=== PATIENT | female | born 1940 | race Caucasian/White ===

== ENCOUNTER 2016-09-11 08:56 | Outpatient (CLI) | payer MEDICARE, OTHER ==
[2015-10-08 10:03] VITALS: BP 126/76
== END 2016-09-11 08:57 ==
LOC: LAB 08:56
PROVIDERS: ATTEND Clinical Nurse Specialist Medical-Surgical
DX: M81.0 Age-related osteoporosis without current pathological fracture (principal); Z82.62 Family history of osteoporosis; Z87.310 Personal history of (healed) osteoporosis fracture; E55.9 Vitamin D deficiency, unspecified
CPT/HCPCS: 36415; 82306; 82310

== ENCOUNTER 2017-09-08 08:48 | Outpatient (CLI) | payer MEDICARE, OTHER ==
[2015-10-08 10:03] VITALS: BP 126/76
--- NOTE | 2017-09-08 11:20 | Diagnostic Imaging Report ---
ROGELIO CHOI (FIOR) - OP [facility] [address] [address] Report Submission Date: Sep 08, 2017 9:14:20 AM CDT Patient Study Name: JOYCE FERRERA I Date: Sep 08, 2017 8:53:10 AM CDT Modality Type: DX Gender: F Description: LOWER EXTREMITY : 40 Institution: [facility] Physician: ROGELIO CHOI (FIOR) - OP Examination: Plain film right knee History: RT KNEE PAIN X SEVERAL MONTHS (Hx) Findings: 3 views of the right knee demonstrates normal cortical margins. No fracture. No dislocation. No joint effusion. No soft tissue irregularity. Impression: No acute osseous abnormality Electronically signed on Sep 08, 2017 9:14:20 AM CDT by: Colten HERNANDEZ
== END 2017-09-08 08:50 ==
LOC: RAD 08:48
PROVIDERS: ATTEND Nurse Practitioner Family
DX: M25.561 Pain in right knee (principal)
CPT/HCPCS: 73562

== ENCOUNTER 2017-10-09 14:56 | Outpatient (CLI) | payer MEDICARE, OTHER ==
[2015-10-08 10:03] VITALS: BP 126/76
== END 2017-10-09 15:00 ==
LOC: LAB 14:56
PROVIDERS: ATTEND Clinical Nurse Specialist Medical-Surgical
DX: M81.0 Age-related osteoporosis without current pathological fracture (principal); Z82.62 Family history of osteoporosis; Z87.310 Personal history of (healed) osteoporosis fracture; E55.9 Vitamin D deficiency, unspecified
CPT/HCPCS: 36415; 82306; 82310

== ENCOUNTER 2017-10-30 19:13 | Emergency (ER) | payer MEDICARE, OTHER ==
[2017-10-30] MEDS ORDERED: METOCLOPRAMIDE HCL 5 MG TABLET PO ONE (20:24)
[2017-10-30] MEDS ORDERED: 0.9 % SODIUM CHLORIDE 1,000 ML IV SCH (20:30)
[2017-10-30] MEDS ORDERED: 0.9 % SODIUM CHLORIDE 1,000 ML IV ONE (20:36)
[2017-10-30] MEDS ORDERED: HYOSCYAMINE SULFATE 0.125 MG TAB.SUBL SL SCH (21:00)
--- NOTE | 2017-10-30 21:47 | Diagnostic Imaging Report ---
[facility] [address] [facility].[address] [address] Report Submission Date: Oct 30, 2017 9:21:20 PM CDT Patient Study Name: JOYCE FERRERA I Date: Oct 30, 2017 8:44:43 PM CDT Modality Type: DX Gender: F Description: CHEST,ABDOMEN : 40 Institution: [facility] Physician: AMMY RAPHAEL Chest and abdomen series History: Abdomen pain Findings: A single view of the chest reveals superior mediastinal widening. The lungs are clear. There is no pleural effusion. Upright and supine abdomen films reveal a normal bowel gas pattern, cholecystectomy clips, and numerous bilateral pelvic calcifications. There is no evidence of free air or constipation. Impression: 1. Superior mediastinal widening. Recommend standard contrast enhanced chest CT followup. 2. Normal bowel gas pattern. Electronically signed on Oct 30, 2017 9:21:20 PM CDT by: Jadon HERNANDEZ
[2017-10-30] MEDS ORDERED: BISACODYL 10 MG SUPP.RECT RC ONE (21:51)
[2017-10-30] MEDS ORDERED: MAGNESIUM HYDROXIDE 400 MG/5 ML 30ML UDC PO ONE (21:51)
[2017-10-30] MEDS ORDERED: LACTULOSE 10 GM/15 ML UDC PO SCH (22:00)
[2017-10-30] MEDS ORDERED: LACTULOSE 10 GM/15 ML UDC PO ONE (22:25)
--- NOTE | 2017-10-30 22:53 | ED Physician Documentation ---
Abdominal Pain - HISTORIAN Historian: patient - HPI Stated Complaint: abdominal cramps, nausea, vomitting, chills Chief Complaint: Abdominal Pain Additonal Information: Since yesterday, hard stools despite laxatives which made abd. pain worse. Onset: days ago (1) Duration: waxing, waning Timing: still present Context: denies: out of country travel, bad food, recent trauma Severity: moderate Quality: aching, fullness Front/Back of Body, Lg (Color): 1 - pain Associated Symptoms: nausea, vomiting Exacerbated by: food Relieved by: nothing Further Comments: no - ROS CONST: no problems GI/: constipation CVS/RESP: none EYES/ENT: none MS/SKIN/LYMPH: none NEURO/PSYCH: none - SOCIAL HX Smoking History: non-smoker Alcohol Use: none Drug Use: none - FAMILY HX Family History: no significant history - PAST HX Past History: other (orthopedic issues) Ischemic Bowel Risk Factors: none Other History: none Immunizations: referred to PCP Home Medications: Ambulatory Orders Medication Instructions Recorded Erythromycin Lactobionate 1 each D 08/03/14 [Erythrocin] Montelukast Sodium [Singulair] 10 mg D 08/03/14 Omeprazole [Omeprazole] 20 mg D 08/03/14 Ondansetron HCl Rapdis [Zofran ODT] 4 mg PO Q8 PRN #12 tab 08/03/14 Allergies/Adverse Reactions: Allergies Allergy/AdvReac Type Severity Reaction Status Date / Time alendronate sodium Allergy Verified 10/30/17 20:34 [From Fosamax] ibandronate sodium Allergy Verified 10/30/17 20:34 [From Boniva] menthol Allergy Verified 10/30/17 20:34 nitrofurantoin Allergy Verified 10/30/17 20:34 macrocrystalline [From Macrodantin] ofloxacin [From Floxin] Allergy Verified 10/30/17 20:34 Penicillins Allergy Verified 10/30/17 20:34 Sulfa (Sulfonamide Allergy Verified 10/30/17 20:34 Antibiotics) Tetracyclines Allergy Verified 10/30/17 20:34 ACTENEL Allergy Uncoded 10/30/17 20:34 - VITAL SIGNS Vital Signs: Vital Signs Temp Pulse Resp BP Pulse Ox 98.5 F 112 H 18 124/73 98 10/30/17 19:15 10/30/17 19:15 10/30/17 19:15 10/30/17 19:15 10/30/17 19:15 - REVIEWED ASSESSMENTS Nursing Assessment Reviewed: Yes Vitals Reviewed: Yes Progress - Results/Orders Results/Orders: aas ordered - Progress Progress: Pt. given 0.25 mg hyoscyamine p.o. and reglan 10 mg p.o., 1 liter NS in ER. Cramping and fullness resolved. Pt. given 1 dulcolax suppositiory and 30 cc mom and 30 cc lactulose prior to discharge Critical Care Note - Critical Care Note Total Time (mins): 0 ED Results Lab/Radiology - Lab Results Lab Results: none ordered - Radiology Radiology Impressions: aas shows retained stool descending colon and gas in middle abdomen/small bowel - Orders Orders: ED Orders Category Date Time Status Place IV Lock 1T Care 10/30/17 20:31 Active AAS [ABD SERIES PA CHEST] [RAD] Stat Exams 10/30/17 Completed 0.9 % Sodium Chloride [Normal Saline] 1,000 ml Med 10/30/17 20:30 Ordered IV .Q1H Bisacodyl [Dulcolax] Med 10/30/17 21:51 Discontinued 10 mg RC NOW ONE Hyoscyamine Sulfate [Oscimin Sl] Med 10/30/17 21:00 Ordered 0.25 mg SL Q6H Lactulose [Enulose] Med 10/30/17 22:00 Ordered 10 gm PO 1100 Magnesium Hydroxide [Milk of Magnesia] Med 10/30/17 21:51 Discontinued 2,400 mg PO NOW ONE Metoclopramide HCl [Reglan] Med 10/30/17 20:24 Discontinued 10 mg PO NOW ONE Abdominal Pain Physical Exam - Physical Exam General Appearance: alert, mild distress EENT: eye inspection normal, ENT inspection normal, pharynx normal, no signs of dehydration, GIANCARLO, no nystagmus, TM's nml NECK: normal inspection, thyroid normal, supple RESPIRATORY: no resp distress, chest non-tender, breath sounds normal CVS: reg rate & rhythm, heart sounds normal, equal pulses ABDOMEN: soft, tenderness (left sided), decreased BS, other (tympany upper abdomen, fullness lower abdomen) BACK: normal inspection, no CVA tenderness SKIN: warm/dry, normal color EXTREMITIES: non-tender, normal range of motion, no evidence of injury, no edema NEURO: oriented X3, CN's nml as tested, motor nml, sensation nml, mood/affect nml, cognition normal Vital Signs: Vital Signs Temp Pulse Resp BP Pulse Ox 98.5 F 112 H 18 124/73 98 10/30/17 19:15 10/30/17 19:15 10/30/17 19:15 10/30/17 19:15 10/30/17 19:15 Discharge Clincal Impression: Constipation Qualifiers: Constipation type: slow transit constipation Qualified Code(s): K59.01 - Slow transit constipation Referrals: Jerel Shaver DO [Primary Care Provider] - 2 Days Comments: Discharged with instructions to increase fluids and consider daily colace Condition: Stable Disposition: HOME, SELF-CARE Decision to Admit: NO Decision Time: 22:30
[2017-10-31 00:30] VITALS: BP 139/69
== END 2017-10-30 22:30 | disposition home or self-care (01) ==
LOC: ED 19:13
DX: K59.01 Slow transit constipation (principal)
CPT/HCPCS: 74022; A9270; 96365; 96366; 99284; S1016

== ENCOUNTER 2017-11-17 11:26 | Outpatient (CLI) | payer MEDICARE, OTHER ==
[2017-10-31 00:30] VITALS: BP 139/69
== END 2017-11-17 11:28 ==
LOC: LAB 11:26
PROVIDERS: ATTEND Orthopaedic Surgery Sports Medicine
DX: M25.561 Pain in right knee (principal)
CPT/HCPCS: 36415; 83036

== ENCOUNTER 2018-02-22 09:55 | Day surgery (SDC) | payer MEDICARE, OTHER ==
[2017-10-31 00:30] VITALS: BP 139/69
[~2018-02-22 09:55] MED LIST: LACTATED RINGERS 1,000 ML IV.SOLN IV ONE; LIDOCAINE HCL/PF 2% 100 MG/5 ML VIAL IJ ONE; PROPOFOL 200 MG/20 ML VIAL IV ONE; SALINE FLUSH 10 ML DISP.SYRIN IVF ONE
--- NOTE | 2018-02-22 13:25 | GI Report ---
REFERRING PHYSICIAN: JESSICA Hernandez RETAIL ANALYTICS MANAGER: Jb Villalobos MD PROCEDURE MEDICATION: Propofol as per anesthesia. INDICATIONS: This is a 77-year-old woman who has had adenomatous polyps when looked at a number of years ago and had to be piecemeal removed. She recently has had some cramps and change in stools and discomfort on the right side of the abdomen. She did have a cholecystectomy. Because of the previous polyps piecemealed and change in bowel habits with cramps and irregular stools, she is referred for a colonoscopy surveillance follow up. On examination, she has slight tenderness in the right lower quadrant. There is a smooth area to palpate. I do not know if it is a cyst or it could be a node or whether a loop of colon that one can palpate on deep palpation in the right lower quadrant. PROCEDURE PERFORMED: Colonoscopy. PROCEDURE: An [employer] video colonoscope was advanced to the rectum. In the sigmoid, she has mild diverticular disease. 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 It took some maneuvering and nurse compression to finally reach the cecum. Particularly redundant was the right colon. We were able to get in the terminal ileum and that looked normal. The appendiceal orifice was normal. On slow withdrawal, the cecum and ascending colon showed redundancy but no obvious intraluminal lesions noted. We went back and forth through there several times. She had a previous polyp in the cecum and it was adenomatous and I see no residual. She had a polyp near the hepatic flexure, again, I saw no residual in that area. On slow withdrawal, the transverse colon, likewise, was normal. The descending colon and sigmoid with mild diverticular disease and redundancy. No obvious intraluminal lesions were noted. Retroflexion of the rectum was normal. Patient tolerated the procedure well. FINDINGS: 1. Atonic redundant colon. 2. Mild diverticular disease of the sigmoid colon. 3. I see no residual polyp at present. RECOMMENDATIONS: 1. Would add something such as Benefiber, FiberCon, or Metamucil at bedtime daily post cholecystectomy. 2. Because of that area of tenderness, would consider a CAT scan of the abdomen and pelvis to see if there could be a node or it could be a cyst in the abdomen. 3. She is to follow up with Evon Vaughn. 4. Consider re-looking at her colon in 5 years, sooner if clinically indicated. cc: JESSICA Hernandez
== END 2018-02-22 09:56 ==
LOC: OPSURG 09:55
PROVIDERS: ATTEND Internal Medicine Gastroenterology
DX: R19.4 Change in bowel habit (principal); Z86.010 Personal history of colon polyps; K59.8 Other specified functional intestinal disorders; K57.30 Diverticulosis of large intestine without perforation or abscess without bleeding
CPT/HCPCS: J2001; J2704; J7120; 45378; S1016

== ENCOUNTER 2018-05-10 09:25 | Outpatient (CLI) | payer MEDICARE, OTHER ==
[2017-10-31 00:30] VITALS: BP 139/69
== END 2018-05-10 09:30 | disposition home or self-care (01) ==
LOC: LAB 09:25
PROVIDERS: ATTEND Clinical Nurse Specialist Medical-Surgical
DX: M81.0 Age-related osteoporosis without current pathological fracture (principal); E55.9 Vitamin D deficiency, unspecified; Z82.62 Family history of osteoporosis; Z87.310 Personal history of (healed) osteoporosis fracture
CPT/HCPCS: 36415; 82306; 82310

== ENCOUNTER 2018-11-08 08:25 | Outpatient (CLI) | payer MEDICARE, OTHER ==
[2017-10-31 00:30] VITALS: BP 139/69
== END 2018-11-08 08:30 | disposition home or self-care (01) ==
LOC: LAB 08:25
PROVIDERS: ATTEND Clinical Nurse Specialist Medical-Surgical
DX: M81.0 Age-related osteoporosis without current pathological fracture (principal); E55.9 Vitamin D deficiency, unspecified; Z82.62 Family history of osteoporosis; Z87.310 Personal history of (healed) osteoporosis fracture
CPT/HCPCS: 36415; 82306; 82310

== ENCOUNTER 2019-05-16 15:24 | Outpatient (CLI) | payer MEDICARE, OTHER ==
[2017-10-31 00:30] VITALS: BP 139/69
== END 2019-05-16 15:29 ==
LOC: LAB 15:24
PROVIDERS: ATTEND Clinical Nurse Specialist Medical-Surgical
DX: M81.0 Age-related osteoporosis without current pathological fracture (principal); E55.9 Vitamin D deficiency, unspecified; Z82.62 Family history of osteoporosis; Z87.310 Personal history of (healed) osteoporosis fracture
CPT/HCPCS: 36415; 82306; 82310